=== PATIENT | female | born 1995 | race Caucasian/White ===

== ENCOUNTER 2020-09-08 10:51 | Emergency (ER) | payer OTHER ==
[2020-09-08] MEDS ORDERED: TORAdol 30 mg Injection IM ONE (11:25)
[2020-09-08] MEDS ORDERED: TYLENOL 325 MG PO ONE (11:26)
[2020-09-08] MEDS ORDERED: Lidoderm Patch 5% TOP ONE (11:26)
--- NOTE | 2020-09-08 11:30 | ERPHSYRPT ---
- History of Present Illness Time Seen by Provider: 09/08/20 11:17 Patient Subjective Stated Complaint: Pt states that she had her daughter 2 years ago and they left the epideral needle in her back for several days and since then she has been having periodic lower back pain, today she is having low back pain that is radiating down her left leg Triage Nursing Assessment: Pt brought self to the ER, vitals wnl, rates pain 9/10, pulses normal, pain in upper left leg and lower back, skin n/w/d, denies injury, hx of sciatica pain during Physician History: The patient is a 25-year-old female who presents with a chief complaint of back pain. Onset reportedly was yesterday. The pain is described as a sharp pain located in her left paralumbar spinous region that radiates to the anterior aspect of her left thigh to the knee, specifically the medial aspect of the left knee. She states she has had intermittent back pain for the last 1 to 2 years mainly after having her children. She denies any recent trauma no red flag features for back pain. She reportedly has taken some Aleve yesterday for the pain but nothing since that time. She arrives alone and was requested not to have any medications that stronger because she has 3 toddlers at home. She has not seen anybody for the back pain in the past and she currently moved from the [facility] on to [place] a year ago and does not have a primary care provider. Timing/Duration: yesterday Associated Symptoms: No nausea, No vomiting, No syncope, No weakness Allergies/Adverse Reactions: No Known Drug Allergies Allergy (Verified 09/08/20 11:06) Travel Risk - International Travel Have you traveled outside of the country in past 3 weeks: No - Coronavirus Screening Are you exhibiting any of the following symptoms?: No Close contact with a COVID-19 positive Pt in past 14-21 Days: No - Review of Systems Constitutional: No Fever, No Chills, No Fatigue, No Weakness Eyes: No Symptoms Ears, Nose, & Throat: No Symptoms Respiratory: No Symptoms Cardiac: No Symptoms Abdominal/Gastrointestinal: No Symptoms, No Nausea, No Vomiting Genitourinary Symptoms: No Dysuria, No Frequency, No Hematuria, No Flank Pain Musculoskeletal: Back Pain, No Fall Neurological: No Focal Weakness, No Sensory Changes Psychological: No Symptoms All Other Systems: Reviewed and Negative - Past Medical History Pertinent Past Medical History: No - Past Surgical History Past Surgical History: No - Social History Smoking Status: Current every day smoker Exposure to second hand smoke: Yes Drug Use: none Patient Lives Alone: No - Female History Hx Last Menstrual Period: 09/02/2020 Hx Now: No - Nursing Vital Signs Nursing Vital Signs: Initial Vital Signs Temperature 97.6 F 09/08/20 10:57 Pulse Rate 89 09/08/20 10:57 Respiratory Rate 14 09/08/20 10:57 Blood Pressure 128/70 09/08/20 10:57 O2 Sat by Pulse Oximetry 99 09/08/20 10:57 Pain Scale Pain Intensity [Left Posterior 9 Proximal Back] Pain Intensity 9 - Physical Exam General Appearance: no apparent distress, alert Eye Exam: PERRL/EOMI Ears, Nose, Throat Exam: moist mucous membranes Neck Exam: normal inspection, non-tender, supple Respiratory Exam: normal breath sounds, lungs clear, airway intact, No respiratory distress Cardiovascular Exam: regular rate/rhythm, normal heart sounds, capillary refill <2 sec, No murmur, No friction rub, No gallop Gastrointestinal/Abdomen Exam: soft, No tenderness, No distention Pelvic Exam: not done Rectal Exam: deferred Back Exam: other (Tenderness to the left paralumbar spinous region), No CVA tenderness, No vertebral tenderness, No point tenderness Extremity Exam: normal inspection, normal range of motion, other (Hip flexion 4+ bilaterally, knee extension and flexion 4+ bilaterally, plantar and dorsiflexion 4+ bilaterally) Neurologic Exam: alert, oriented x 3, cooperative, normal mood/affect, other (Sensation to gross touch intact and equal in the L4, L5, and S1 nerve distribution of feet. No ankle clonus. Patellar reflex 2+ bilaterally), No sensory deficit Skin Exam: normal color, warm, dry, No rash, No petechiae SpO2 Interpretation: normal SpO2: 99 O2 Delivery: Room Air Ordered Tests: Active Orders 24 hr Category Date Time Status HCG,QUALITATIVE URINE Stat Lab 09/08/20 11:12 Completed UA W/RFX UR CULTURE Stat Lab 09/08/20 11:12 Completed Medication Summary Discontinued Medications Generic Name Dose Route Start Last Admin Trade Name Freq PRN Reason Stop Dose Admin Acetaminophen 975 mg 09/08/20 11:26 09/08/20 11:33 Tylenol 325 Mg PO 02/08/21 11:27 975 mg STAT ONE Administration Acetaminophen Confirm 09/08/20 11:32 Tylenol 325 Mg Administered 09/08/20 11:33 Dose 975 mg .ROUTE .STK-MED ONE Acetaminophen Confirm 09/08/20 11:37 Tylenol 325 Mg Administered 09/08/20 11:38 Dose 325 mg .ROUTE .STK-MED ONE Ketorolac Tromethamine 30 mg 09/08/20 11:25 09/08/20 11:34 Toradol 30 Mg Injection IM 09/08/20 11:26 30 mg STAT ONE Administration Ketorolac Tromethamine Confirm 09/08/20 11:32 Toradol 30 Mg Injection Administered 09/08/20 11:33 Dose 30 mg .ROUTE .STK-MED ONE Lidocaine 1 patch 09/08/20 11:26 09/08/20 11:33 Lidoderm Patch 5% TOP 09/08/20 11:27 1 patch STAT ONE Administration Lab/Rad Data: Laboratory Results 09/08/20 09/08/20 Range/Units 11:12 11:12 Urine Color YELLOW (YELLOW) Urine Appearance CLEAR (CLEAR) Urine pH 7.0 (5-6) Ur Specific [place] 1.018 (1.005-1.025) Urine Protein NEGATIVE (Negative) Urine Ketones NEGATIVE (NEGATIVE) Urine Blood NEGATIVE (0-5) Mina/ul Urine Nitrite NEGATIVE (NEGATIVE) Urine Bilirubin NEGATIVE (NEGATIVE) Urine Urobilinogen NEGATIVE (0-1) mg/dL Ur Leukocyte Esterase NEGATIVE (NEGATIVE) Urine WBC (Auto) NONE (0-5) /HPF Urine RBC (Auto) NONE (0-2) /HPF U Epithel Cells (Auto) RARE (FEW) /HPF Urine Bacteria (Auto) NONE (NEGATIVE) /HPF Urine Mucus (Auto) SLIGHT (NEGATIVE) /HPF Urine Culture Reflexed NO (NO) Urine Glucose NEGATIVE (NEGATIVE) mg/dL Urine HCG, Qual NEGATIVE (Negative) - Progress Progress: improved Progress Note: 09/09/20 09:58 Nontoxic in appearance. The patient represents with low back pain with L sciatica likely affected L3-L4 region. Low suspicion for NATALIO, spinal epidural abscess, fracture, osteolytic lesion. The patient was treated in the ED and ultimately discharged home to f/u with PT as an outpatient. Counseled pt/family regarding: lab results, diagnosis, need for follow-up - Departure Departure Disposition: Home Clinical Impression: Back pain with sciatica Condition: Stable Critical Care Time: No Referrals: Provider,Unknown [Primary Care Provider] - Instructions: Low Back Pain (DC), Sciatica (DC) Additional Instructions: Please take Tylenol every 6-8 hours as needed for pain. You can purchase this medication [id number]. Please take this medication as instructed on the medication bottle. Prescriptions: Tizanidine HCl 2 mg PO [id number] PRN #20 tablet PRN Reason: Pain Lidocaine HCl 5% Patch [Lidoderm Patch 5%] 1 patch TOP DAILY #7 patch Naproxen 500 mg [Naprosyn 500 MG] 500 mg PO BID 5 Days #10 tablet Outpatient Orders: Physical Therapy Eval & Treat Facility: [facility], Location: PHYSICAL THERAPY
[2020-09-08] MEDS ORDERED: TORAdol 30 mg Injection ONE (11:32)
[2020-09-08] MEDS ORDERED: TYLENOL 325 MG ONE ×2 (11:32→11:37)
[2020-09-08 11:51] LABS: Appearance CLEAR (CLEAR); Bilirubin NEGATIVE (NEGATIVE); Blood NEGATIVE Ery/ul (0-5); Epithelial Cells RARE /HPF (FEW); Glucose NEGATIVE (NEGATIVE); Ketones NEGATIVE (NEGATIVE); Leukocyte Esterase NEGATIVE (NEGATIVE); Mucus SLIGHT /HPF (NEGATIVE); Nitrite NEGATIVE (NEGATIVE); Protein,Urine Dip NEGATIVE (Negative); Specific Gravity 1.018 (1.005-1.025); Urobilinogen NEGATIVE mg/dL (0-1)
[2020-09-08 12:11] VITALS: BP 116/70; PULSE 67
[2020-09-08 12:19] VITALS: O2SAT 99
== END 2020-09-08 12:46 | disposition home or self-care (01) ==
LOC: ED 10:51
DX: M54.42 Lumbago with sciatica, left side (principal)
CPT/HCPCS: 81001; 84703; 96372; 99284; J1885; A9270-GY